=== PATIENT | female | born 1985 | race Caucasian/White ===

== ENCOUNTER 2020-02-12 09:02 | Emergency (ER) | payer OTHER, SELFPAY ==
[2020-02-12] VITALS (8 sets, daily range): BP systolic 135–148; BP diastolic 95–106; PULSE 74–109; RESP 11–19; TEMP 36.7; O2SAT 96–99
--- NOTE | ~2020-02-12 | XR_ITS ---
EXAMINATION: XR chest 1V portable EXAM DATE: 02/12/2020 09:40 INDICATION: One-day shortness of breath. TECHNIQUE: Portable AP frontal chest x-ray was obtained. Comparison is made to prior examination from 11/11/2005. FINDINGS: There is moderate thoracic dextroscoliosis, thoracolumbar levoscoliosis. The lungs are hung r. There are no pleural effusions. The cardiomediastinal silhouette is within normal limits. There is no pneumothorax suspected. IMPRESSION: No acute cardiopulmonary findings. Reviewed, dictated and finalized at location A. MACHINE TENDER STARCH SPRAYING
--- NOTE | 2020-02-12 09:27 | ECG_ITS ---
Measurements Intervals [place] Rate: 104 P: 52 IL: 174 QRS: 51 QRSD: 87 T: -37 QT: 322 QTc: 425 Interpretive Statements SINUS TACHYCARDIA LEFT ATRIAL ENLARGEMENT CANNOT RULE OUT SEPTAL INFARCT, AGE INDETERMINATE ST-T WAVE ABNORMALITY IN INFERIOR LEADS- CONSIDER ISCHEMIA BASELINE ARTIFACT- I, II, V3-V6 ABNORMAL ECG Electronically Signed On 02-12-2020 13:39:59 FITTING ROOM INSPECTOR by Chung Schuler D.O.
[2020-02-12] MEDS: SODIUM CHLORIDE 0.9% IV 1,000 ML 999 ML IV CONT (10:14)
--- NOTE | 2020-02-12 11:06 | ED.GENADULT ---
HPI - General Adult General Chief complaint: Shortness of Breath/Dyspnea Stated complaint: SOB, COVID Positive Time Seen by Provider: 02/12/20 09:04 Source: patient Mode of arrival: ambulatory Limitations: no limitations History of Present Illness HPI narrative: Patient is a 34-year-old female who presents to emergency department for evaluation of Covid symptoms was tested positive last Wednesday had few symptoms preceding the lack consistent of congestion rhinorrhea drainage now has nonproductive cough shortness of breath notes yesterday she lost her sense of smell and taste patient lives with her boyfriend who is also positive patient on arrival to emergency department is in no distress returned to work today and notes that she felt dyspneic and dizzy with activity and presents to the emergency department lying in the bed in no distress does not appear uncomfortable denies vomiting diarrhea or history of lung disease Related Data Home Medications Medication Instructions Recorded Confirmed multivitamin [Multi-Day] tablet 02/12/20 Allergies Allergy/AdvReac Type Severity Reaction Status Date / Time No Known Allergies Allergy Verified 02/12/20 09:19 Review of Systems Review of Systems: All systems reviewed & are unremarkable except as noted in HPI and below PMFSH Family History Family History (Updated 11/30/13 @ 07:13 by DOCTOR UNKNOWN) Other Family history of arthritis Social History Social History Smoking status: Never smoker Second hand tobacco smoke exposure: No Exam Narrative: Exam Narrative: GENERAL: Well-appearing, well-nourished, and in no acute distress. HEAD: Normocephalic, atraumatic. EYES: PERRLA and EOMI. ENT: Nares clear, no rhinorrhea or epistaxis. Mucous membranes moist. CHEST: Clear to auscultation. No respiratory distress. No wheezes rales or rhonchi HEART: Regular rate and rhythm. No murmur heard. EXTREMITIES: Normal range of motion. No edema. SKIN: Warm, dry, no rash. NEURO: No focal deficits. Alert and oriented x3. PSYCH: Normal mood and affect. Course Course Emergency Course: Patient in the room in no distress aware of case findings treatment plan and diagnosis agreeing to follow-up as directed hemodynamically stable was given fluids in the emergency department will be treated symptomatically no pneumonia seen on chest x-ray Vital Signs Vital signs: Vital Signs Pulse Rate 102 H 02/12/20 09:13 Respiratory Rate 16 02/12/20 09:13 Temperature 98.1 F 02/12/20 09:16 Pulse Rate 78 02/12/20 09:56 Respiratory Rate 19 02/12/20 09:56 Blood Pressure 135/95 H 02/12/20 09:56 Pulse Oximetry 99 02/12/20 09:22 Medical Decision Making MDM Narrative Medical decision making narrative: Patient in the room at this time no distress normal vital signs no hypoxemia ABCs stable no pneumonia seen on exam or on the chest x-ray was hydrated felt appropriate for outpatient reevaluation after being released by primary care due to continued symptoms Vital Signs Vital Signs: Vital Signs Pulse Rate 102 H 02/12/20 09:13 Respiratory Rate 16 02/12/20 09:13 Temperature 98.1 F 02/12/20 09:16 Pulse Rate 78 02/12/20 09:56 Respiratory Rate 19 02/12/20 09:56 Blood Pressure 135/95 H 02/12/20 09:56 Pulse Oximetry 99 02/12/20 09:22 Discharge Plan Discharge Clinical Impression: COVID-19 Patient Disposition: Home, Self-Care Condition: Stable Instructions: Antibiotic Form, COVID-19 (Coronavirus Disease 2019) (ED) Additional Instructions: Follow up with your primary care provider within 1-2 day to set up for reevaluation and to have discussion to see when you can be released back to work. Go to ER for shortness of breath, difficulty breathing, chest pain, fever/chills, weakness, nauseau/vomitting, etc. or any other concerns. Self quarantine until you have been advised otherwise by sowmya
== END 2020-02-12 11:21 | disposition home or self-care (01) ==
PROVIDERS: Emergency Provider Emergency Medicine; PCP Internal Medicine
DX: U07.1 COVID-19 (principal); R00.0 Tachycardia, unspecified; R94.31 Abnormal electrocardiogram [ECG] [EKG]
CPT/HCPCS: 71045; 93005; 96360; 99283; J7030

== ENCOUNTER → 2021-01-25 00:20 | Outpatient (CLI) | payer OTHER, SELFPAY ==
[2021-01-25 18:07] LABS: SARS-CoV-2 RNA PCR Negative
== END ==
PROVIDERS: Visit Provider Obstetrics & Gynecology
DX: Z01.812 Encounter for preprocedural laboratory examination (principal); Z20.822 Contact with and (suspected) exposure to COVID-19
CPT/HCPCS: C9803; U0003; U0005

== ENCOUNTER 2021-01-29 00:10 | Day surgery (SDC) | payer OTHER, SELFPAY ==
[2021-01-23 13:48] VITALS: BMI 23.1
--- NOTE | 2021-01-29 11:41 | PM.IMHP ---
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 She has had one prior LEEP conization of the cervix. She has had a negative colposcopy and a negative ECC. She has a ParaGard IUD in place. She has monthly menses lasting 6 days each, with no intermenstrual bleeding. Chief Complaint: Abnormal pap Review of Systems Review of Systems: All systems reviewed & are unremarkable except as noted in HPI and below PMFSH Surgical History Surgical History History of loop electrical excision procedure (LEEP) Family History Family History Other Family history of arthritis Social History Social History Smoking status: Never smoker Second hand tobacco smoke exposure: No Alcohol intake: current Drinks per week: 4 Substance use: never Substance use type: does not use Living arrangements: with family Additional living arrangements comments: CHILDREN Spiritual care concerns: No Meds Home Medications and Allergies Home Medications Medication Instructions Recorded Confirmed Type multivitamin [Multi-Day] 1 tablet PO HS 02/12/20 01/23/21 History Allergies Allergy/AdvReac Type Severity Reaction Status Date / Time No Known Allergies Allergy Verified 01/23/21 13:47 Exam Const: Orientation/consciousness: patient oriented x3 Other: Well-developed, well-nourished female in no acute distress. Neck: Thyroid: thyroid normal Lymphatic: no lymphadenopathy noted (in neck, axilla or inguinal nodes) Resp: Effort & Inspection: normal respiratory effort Auscultation: clear to auscultation bilaterally Cardio: Rate: regular rate Rhythm: regular rhythm Heart sounds: S1 normal heart sound present and S2 normal heart sound present GI: Other: ABD: Soft, nontender, nondistended. No guarding or rebound tenderness. No hepatosplenomegaly. : General: Yes no CVA tenderness Other: External genitalia: normal female hair distribution, without lesion. Urethral meatus: no lesion, non prolapsed. Bladder: no mass, nontender Vagina: well-estrogenized, without lesion or discharge. No cystocele or rectocele. Cervix: no lesion or discharge. IUD strings noted. Uterus: small, anteverted, freely mobile, nontender Adnexa: no mass or tenderness. Anus/perineum: no lesions, nontender Back/Spine/Pelvis: Back: no CVA tenderness Skin: General skin exam: normal color and no rashes or lesions noted Neuro: General: patient oriented x3 Extrem: Other: Extremities: nontender with no edema Psych: Mental Status: mental status grossly normal Affect: normal affect Assessment and Plan Assessment and plan (1) Pap smear abnormality of cervix with LGSIL: Code(s): R87.612 - Low grade squamous intraepithelial lesion on cytologic smear of cervix (LGSIL) Status: Acute Assessment and Plan: A: Persistent LSIL on Pap, with negative colposcopy and negative ECC. P: I have offered continued Pap / colpo surveillance, vs. LEEP conization. She has completed childbearing and is interested in more aggressive management with LEEP. She understands risks of surgery to include risks of anesthesia, risks of pain, infection, bleeding, blood products, thromboembolic phenomena and damage to adjacent structures such as bowel, bladder, ureters, blood vessels and nerves. She understands all these risks and elects to proceed with surgery.
--- NOTE | 2021-01-29 12:05 | WPDHPUPDATE1 ---
History and Physical Update Update Date/Time: 01/29/21 12:05 History and Physical has been reviewed, including an updated exam of the patient. There are NO changes in the patient's condition. Risks, benefits, and alternatives have been discussed and questions answered. Patient agrees to proceed with procedure.
[2021-01-29 12:11] VITALS: BP 127/81; PULSE 84; RESP 18; TEMP 36.5; O2SAT 100; BMI 23.4
[2021-01-29] MEDS: ACETAMINOPHEN 500 MG TABLET 1000 MG PO (12:17)
[2021-01-29] MEDS: LACTATED RINGERS 1,000 ML 30 ML IV CONT (12:26)
--- NOTE | 2021-01-29 13:09 | P.PNAN_ITS ---
Anes - Initial Pre Proc Eval Procedure: Operation Date: 01/29/21 14:00 Proposed Procedures p Loop Electrical Excision Procedure - Titus Barr MD Date/Time: 01/29/21 13:09 Surgeon: Titus Barr MD Pre Op Diagnosis: low grade ELSY Patient Data Age: 35 Gender: F Height: 1.63 m Weight: 62 kg Last Vital Signs Temp 36.5 C 01/29/21 12:11 Pulse 84 01/29/21 12:11 Resp 18 01/29/21 12:11 BP 127/81 01/29/21 12:11 Pulse Ox 100 01/29/21 12:11 Allergies Allergy/AdvReac Type Severity Reaction Status Date / Time No Known Allergies Allergy Verified 01/29/21 12:13 Home Medications Medication Instructions Recorded Confirmed Type multivitamin [Multi-Day] 1 tablet PO HS 02/12/20 01/29/21 History Patient hx anesthesia problems: none Family hx anesthesia problems: none Results Review: All pre-operative results and documents have been reviewed as part of the pre-operative evaluation. [facility] Surgical History Surgical History History of loop electrical excision procedure (LEEP) Family History Family History Other Family history of arthritis Social History Social History Smoking status: Never smoker Second hand tobacco smoke exposure: No Alcohol intake: current Drinks per week: 4 Substance use: never Substance use type: does not use Living arrangements: with family Additional living arrangements comments: CHILDREN Spiritual care concerns: No Anes - Eval Final PreProcedure Day of Procedure 01/29/21 13:09 Patient weight: normal Heart: regular rate and rhythm Lungs: clear to auscultation and normal air movement Airway: Mallampati scale class II Neurological: alert and oriented Last oral intake: >/= 8 hours ASA classification: II Emergent: no Anesthetic plan: proceed Anesthesia type and monitoring: general GIVS and standard monitoring Results Review: All pre-operative results and documents have been reviewed as part of the pre-operative evaluation. Informed Consent: The patient's anesthetic plan and its attendant risks and benefits were discussed with the patient/family/POA. Questions were solicited and answers provided to the satisfaction of the patient/family/POA.
--- NOTE | 2021-01-29 14:38 | SUR.PREOP ---
PT NOTIFIED OF 1 HOUR DELAY
[2021-01-29] MEDS: FERRIC SUBSULFATE 8 ML SOLUTION WITH APPLICATOR TOPICAL (15:11)
[2021-01-29] MEDS: ACETIC ACID 0.25% IRRIG SOLN 500 ML IRRIGATION (15:12)
--- NOTE | 2021-01-29 15:29 | W.PM.PROC2 ---
Procedure Note - Detailed Date of Procedure 01/29/21 Pre-op Diagnosis LSIL on Pap Post-op Diagnosis same Procedure Performed LEEP conization of cervix Surgeon Titus Barr MD Anesthesia MAC and local (1% lidocaine paracervical block) Findings IUD strings noted. No acetowhite epithelium. Description of Procedure The patient was taken to the operating room where general IV sedation was administered. She was prepared and draped in the usual sterile fashion. An insulated speculum was placed. The cervix was swabbed with acetic acid. The anterior lip of the cervix was grasped with a single-tooth tenaculum. Ten mL of 1% lidocaine was administered in a paracervical block. LEEP conization was then performed, first biopsying the posterior lip of the cervix, then the anterior lip of the cervix, and then the top of the hat. Specimens were passed off to be sent to pathology. Hemostasis was achieved using a roller ball, followed by Monsel's solution. Hemostasis was excellent. The IUD strings were amputated during the procedure. Sponge, lap, needle and instrument counts were correct. The patient was awakened and taken to the recovery room in stable condition. I was present and scrubbed for the entire procedure. Implants None Estimated Blood Loss 5 Drains No Packing No Pathology yes (Anterior lip of cervix, posterior lip of cervix, top of hat biopsies) Complications None Disposition PACU
[2021-01-29 15:33] VITALS: BP 112/64; PULSE 67; RESP 14; O2SAT 98
[2021-01-29] MEDS: oxyCODONE HCL (*CRX) 5 MG TAB IR PO (15:46)
[2021-01-29 16:00] VITALS: BP 126/79; PULSE 57; RESP 16
== END 2021-01-29 16:20 | disposition home or self-care (01) ==
PROVIDERS: Visit Provider Obstetrics & Gynecology
PROC: 0UBC7ZZ Excision of Cervix, Via Natural or Artificial Opening (ICD-10-PCS; CPT 57522; principal; 2021-01-29 14:00)
DX: N72 Inflammatory disease of cervix uteri (principal); R87.810 Cervical high risk human papillomavirus (HPV) DNA test positive
CPT/HCPCS: 57522; 88305; A9270; J2250; J2270; J2405; J2704; J7120

== ENCOUNTER → 2021-10-28 15:29 | Outpatient (CLI) | payer SELFPAY ==
--- NOTE | ~2021-10-28 | MR_ITS ---
EXAMINATION: MR knee RT wo con DATE: 10/28/2021 16:10 INDICATION: Right knee pain TECHNIQUE: Magnetic resonance imaging (MRI) of the right knee was performed without intravenous contr ast. Sequences included axial PD-weighted FS FSE, coronal PD-weighted FSE and PD-weighted FS FSE, sag ittal PD-weighted FSE, and sagittal T2-weighted FS FSE. COMPARISON: None. FINDINGS: Medial compartment: Mild medial meniscal displacement, without focal tear. Mild diffuse thinning of cartilage and joint s pace narrowing, with mild osteophytosis. Lateral compartment: No meniscal tear. Mild diffuse thinning of cartilage and osteophytosis. Patellofemoral compartment: Multifocal partial-thickness cartilage signal abnormality. Retinacula intact. The flexor and extensor tendons are intact Ligaments and tendons: The stabilizing ligaments and flexor and extensor tendons are intact. Fluid: Minimal right knee joint fluid. Osseous/other: Focal subchondral sclerosis and minimal marrow edema on the weightbearing surface of the medial condy le. IMPRESSION: 1. Mild tricompartmental osteoarthritis. 2. No internal derangement. Reviewed, dictated and finalized at location K.
== END ==
DX: M25.561 Pain in right knee (principal); M17.11 Unilateral primary osteoarthritis, right knee
CPT/HCPCS: 99199; 73721

== ENCOUNTER 2023-03-18 10:53 | Emergency (ER) | payer OTHER, SELFPAY ==
[2023-03-18 11:25] VITALS: BP 148/92; PULSE 78; RESP 18; TEMP 36.8; O2SAT 99
--- NOTE | 2023-03-18 11:34 | PC.NURSE ---
Pt had to leave to take care of personal affairs.
== END 2023-03-18 11:45 | disposition left against medical advice (07) ==
LOC: ANHED 11:41
DX: K64.9 Unspecified hemorrhoids (principal)
CPT/HCPCS: 99199

== ENCOUNTER 2023-11-23 12:25 | Outpatient (CLI) | payer OTHER, SELFPAY ==
--- NOTE | ~2023-11-23 | MMUS_ITS ---
EXAMINATION: MM diag rossi implant BI w petar, US breast LT limited HISTORY: Palpable left breast abnormality TECHNIQUE: Additional 3-D tomosynthesis images of the breasts were performed and synthetic 2-D images were generated. CAD analysis was submitted and interpreted. High resolution Limited left breast ultr asound was performed. COMPARISON: None BREAST PARENCHYMAL COMPOSITION: Dense: The breasts are heterogeneously dense, which may obscure small masses FINDINGS: MAMMOGRAPHIC FINDINGS: There are bilateral subpectoral breast implants. There are no suspicious masses, calcifications or ar chitectural distortion in either breast to suggest malignancy. ULTRASOUND: Limited left breast ultrasound: 11:00, 6 cm from the nipple there is an oval circumscribed hypoechoic mass measuring 2.9 x 3.1 x 1.0 cm which has enlarged compared with ultrasound dated 03/06/2010 when it measured up to 1.3 cm. Per the patient this mass is been stable for long period of time. No business intern al vascularity or significant posterior features. IMPRESSION: 1. Probable benign left breast mass at 11:00, 6 cm from the nipple. 2. Recommend 6 month follow-up Limited left breast ultrasound. BI-RADS category 3, probably benign findings. Reviewed, dictated and finalized at location B. IMPRESSION: 1. Probable benign left breast mass at 11:00, 6 cm from the nipple. 2. Recommend 6 month follow-up Limited left breast ultrasound. BI-RADS category 3, probably benign findings.
== END 2023-11-23 12:26 | disposition home or self-care (01) ==
LOC: ANHIMG 12:27
PROVIDERS: Visit Provider Obstetrics & Gynecology
DX: N63.20 Unspecified lump in the left breast, unspecified quadrant (principal); R92.8 Other abnormal and inconclusive findings on diagnostic imaging of breast
CPT/HCPCS: 76642; 77062; 77066; G0279

== ENCOUNTER 2024-06-20 09:04 | Outpatient (CLI) | payer OTHER, SELFPAY ==
--- NOTE | ~2024-06-20 | US_ITS ---
US breast LT limited 06/20/2024 09:16 Indication: Six-month follow-up left breast mass Procedure: High-resolution Limited ultrasound of the left breast Comparison: Comparison to multiple prior studies sequentially, with oldest reviewed study dated 05/2009. Findings: At 11:00, 6 cm from the nipple there is an oval parallel oriented circumscribed hypoechoic mass with posterior acoustic enhancement and no internal vascularity measuring 2.9 x 2.9 x 1.1 cm com pared with 3.1 x 2.9 x 1 cm on study dated 11/23/2023. No additional masses are identified. Impression: 1: Stable benign-appearing left breast mass at 11:00, 6 cm from the nipple measuring 2.9 cm, likely b enign. BI-RADS CATEGORY 3-PROBABLY BENIGN FINDING RECOMMENDATION: Six-month follow-up diagnostic bilateral mammogram and Limited left breast ultrasound recommended. Reviewed, dictated and finalized at location B. Impression: 1: Stable benign-appearing left breast mass at 11:00, 6 cm from the nipple ray uring 2.9 cm, likely benign. BI-RADS CATEGORY 3-PROBABLY BENIGN FINDING RECOMMENDATION: Six-month follow-up diagnostic bilateral mammogram and Limited left breast ultrasound recommended.
== END 2024-06-20 09:05 | disposition home or self-care (01) ==
PROVIDERS: PCP Obstetrics & Gynecology; Visit Provider Obstetrics & Gynecology
DX: R92.8 Other abnormal and inconclusive findings on diagnostic imaging of breast (principal); N63.22 Unspecified lump in the left breast, upper inner quadrant
CPT/HCPCS: 76642

== ENCOUNTER 2024-12-21 09:10 | Outpatient (CLI) | payer OTHER, SELFPAY ==
--- NOTE | ~2024-12-21 | MMUS_ITS ---
EXAMINATION: US breast LT limited, MM diagnostic rossi BI w petar HISTORY: Six-month follow-up left breast TECHNIQUE: Additional images of both breasts]] were performed using full field digital mammography. 3-D tomosynthesis were also obtained and synthetic 2-D images were generated. CAD analysis was submitted and interpreted. High- resolution bilateral breast ultrasound was performed.] ] Implant displacement views were obtained. COMPARISON: Mammogram 11/23/2023; breast ultrasound 11/23/2023 BREAST PARENCHYMAL COMPOSITION: The breasts are extremely dense which lowers the sensitivity of mammography. FINDINGS: MAMMOGRAPHIC FINDINGS: No suspicious calcifications or architectural distortion. Mass in the upper- inner quadrant 11:00 position with a sonographic correlate. ULTRASOUND: [ There is a 2.9 x 2.9 x 1.1 cm wider than tall well-circumscribed hypoechoic mass in the left breast at the 11:00 position, 6 cm from the nipple. No internal color Doppler flow. No posterior acoustic shadowing. The finding is grossly stable dating back to the study from 11/23/2023. The finding is probably benign. IMPRESSION/RECOMMENDATION: 1. Probably benign mass in the left breast at the 11:00 position dating back to 11/23/2023. A diagnostic left breast ultrasound in 6 months is recommended. 2. No mammographic evidence for malignancy in the right breast. BI-RADS 3-Probably benign-Short interval follow-up suggested. Reviewed, dictated and finalized at location Q. IMPRESSION/RECOMMENDATION: 1. Probably benign mass in the left breast at the 11:00 position dating back to 11/23/2023. A diagnostic left breast ultrasound in 6 months is recommended. 2. No mammographic evidence for malignancy in the right breast. BI-RADS 3-Probably benign-Short interval follow-up suggested. IMPRESSION/RECOMMENDATION: 1. Probably benign mass in the left breast at the 11:00 position dating back to 11/23/2023. A diagnostic left breast ultrasound in 6 months is recommended. 2. No mammographic evidence for malignancy in the right breast. BI-RADS 3-Probably benign-Short interval follow-up suggested.
--- OUTSIDE RECORDS SUMMARY | 2024-12-21 09:36 | XMS_ITS | Encounter Summary ---
Author Organization [facility] Address [address] [place] [address] Care Team Providers Care Content Engineer Name Role Phone Titus Barr MD Primary Care Provider [phone] Encounter Details Date Type Department Care Team (Late st Contact Info) Description 06/03/2018 Lab Requisition [facility] [address] [facility] [facility] [place] [id number] Fabiola Dutta MD [address] [facility] [address] [place] [address] Social History Tobacco Use Types Packs/Day Years Used Date Smoking Tobacco: Never Alcohol Use Standard Drinks/Week Comments No 0 (1 standard drink = 0.6 oz pur e alcohol) Comments Unknown Sex and Gender Information Value Date Recorded Sex Assigned at Not on file Legal Sex Female 1:48 AM CORRECTIONAL PROGRAM OFFICER Gender Identity Not on file Sexual Orientation Not on file documented as of this encounter Plan of Treatment Not on file documented as of this encounter Procedures Procedure Name Priority Date/Time Associated Diagnosis Comments DERMATOPATH TECHNICAL REPORT Routine 06/02/2018 12:00 AM CORRECTIONAL PROGRAM OFFICER documented in this encounter Results * DERMATOPATH TECHNICAL REPORT (06/02/2018 12:00 AM CORRECTIONAL PROGRAM OFFICER) Case Report Dermatopathology Report Case: [id number] Authorizing Provider: Fabiola Dutta MD Collected: 06/02/2018 12:00 AM Pathologist: Daisy Samuels MD Received: 06/03/2018 11:38 AM Specimen: Skin, left ankle 2:25 PM [facility] Addendum 1 At the request of the diagnosing physician, the technical component for MART-1/Melan A was performed by [facility]. 2:25 PM [facility] Addendum electronically signed by Daisy Samuels MD on 06/07/2018 at 1425 CORRECTIONAL PROGRAM OFFICER Clinical History Nevus R/O atypia. Brown macule, irr color. 2:25 PM [facility] Gross Description Specimen A: Received is one formalin filled container labeled with the patient's name and designated left ankle. The specimen consists of a shave measuring [id number]. Jar 0. [facility] performed the technical component only. 2:25 PM [facility] Embedded Images 2:25 PM [facility] DISCLAIMER An external and internal positive and negative controls are appropriate for the histochemical, immunohistochemical and immunofluorescence stain(s) in this case (if any), except where stated explicitly. The performance characteristics of the stain(s) cited in this report were developed and its performance characteristic determined by the Dermatopathology Laboratory at [facility], directed by Dr. Faustina Samuels. These tests need not be, and therefore are not, approved by the [place] Food and Drug Administration. The tests are used for clinical purposes. 2:25 PM [facility] at 1842 CORRECTIONAL PROGRAM OFFICER Pathology/Cytolog y TISSUE SPECIMEN FROM SKIN / Unknown 06/02/2018 06/03/2018 11:38 AM CORRECTIONAL PROGRAM OFFICER us Fabiola Dutta MD LAB - PATHOLOGY/CYTOLOGY ORD ERABLES Edited Result - Final DERMATOPATHOLOGY LABORATORY [facility] - Department of Dermatology [address] [place] [address], [facility] [email or web address]] [phone] documented in this encounter Visit Diagnoses Not on filedocumented in this encounter Care Teams Content Engineer Relationship Specialty Start Date End Date Titus Barr MD [address] [id number] PCP - General 01/19/11 documented as of this encounter
--- OUTSIDE RECORDS SUMMARY | 2024-12-21 09:36 | XMS_ITS | Clinical Summary ---
Author Organization [facility] Address [address] [place] [id number] Care Team Providers Care Plunger Shovel Operator Name Role Phone Unavailable Primary Care Provider Unavailabl e Social History Tobacco Use Types Packs/Day Years Used Date Smoking Tobacco: Never Assessed Comments Unknown Sex and Gender Information Value Date Recorded Sex Assigned at Not on file Legal Sex Female 9:23 PM EARLY CHILDHOOD EDUCATION COORDINATOR Gender Identity Not on file Sexual Orientation Not on file Plan of Treatment Health Maintenance Due Date Last Done Comments Cervical Cancer Screening Pa p Smear (Age 30 to 64) Every 3 Years 1983 Annual Physical 09/25/1986 Hepatitis C 09/25/2001 DTaP, Tdap and Td Vaccines ( 1 - Tdap) 09/25/2002 Hepatitis B Vaccines (1 of 3 - 19+ 3-dose series) 09/25/2002 HPV Vaccines (1 - 3-dose SCD M series) 09/25/2010 Cervical Cancer Screening Pa p with HPV Testing (Age 30 to 64) Every 5 Years 09/25/2013 Cervical Cancer Screening with HPV 09/25/2013 Mammogram Screening 2023 COVID-19 Vaccine ( - 2023-2 5 season) 2024 Meningococcal B Vaccine Aged Out No l onger eligible based on patient's age to complete this topic Meningococcal Vaccine Aged Out No rene sav eligible based on patient's age to complete this topic Pneumococcal Vaccine: Pediat rics (0 to 5 Years) and At-Risk Patients (6 to 49 Years) Aged Out No longer eligible b ased on patient's age to complete this topic RSV Immunizations Under 20 Months Aged Out No longer eligible based on patient's age to complete this topic
--- OUTSIDE RECORDS SUMMARY | 2024-12-21 09:36 | XMS_ITS | Clinical Summary ---
Author Organization [facility] Address [address] [place] [address] Care Team Providers Care Respiratory Therapy Instructor Name Role Phone Titus Barr MD Primary Care Provider [phone] Source Comments [facility],non-owned Affiliates and Associated Physician Practices is amultiple site organization consisting of ambulatory clinics and hospital sitesin [place], [place], [place] and [place]. This disclosure is being madepursuant to the Care Everywhere program and may not contain all information available regarding this patient. Last updated 17.[facility] Allergies No known active allergies Medications * Be aware that medications may not be up to date on this document. Alwaysverify current medications with the patient. Vit-Fe Fumarate-FA ( RX 1) 60-1 MG tablet Take 1 Tab by mouth once daily. Active acetaminophen (TYLENOL) 500 MG tablet Take 500 mg by mouth every 4 hours as needed. Maximum allowable Acetaminophen amount = 4 Grams (4000 mg) / 24 hours. Active ibuprofen (MOTRIN) 600 MG tablet Take 1 Tab by mouth every 6 hours as needed for Pain (cramping). 60 Tab 1 1 Active docusate sodium (COLACE) 100 MG capsule Take 1 Cap by mouth 2 times daily as needed for Constipation. 60 Cap 1 1 Active Active Problems Problem Noted Date Diagnosed Date GBS (group B streptococcus) UTI complicating pre gnancy 01/19/2011 Rh negative status during 01/19/2011 Overview (01/19/2011): Rhogam given 01/15 Placenta previa 01/16/2011 Low-lying placenta 01/15/2011 Immunizations Immunization Administration Dates Next Due Rho D Immune Globulin 01/27/2011,01/15/2011 Family History Medical History Relation Name Comments Cancer Maternal Grandfather lymphoma Diabetes Paternal Uncle Relation Name Status Comments Maternal Grandfather lymphoma Paternal Uncle Social History Tobacco Use Types Packs/Day Years Used Date Smoking Tobacco: Never Alcohol Use Standard Drinks/Week Comments No 0 (1 standard drink = 0.6 oz pur e alcohol) Comments Unknown Sex and Gender Information Value Date Recorded Sex Assigned at Not on file 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 Gender Identity Not on file Sexual Orientation Not on file Last Filed Vital Signs Vital Sign Reading Time Taken Comments Blood Pressure 115/65 01/27/2011 8:00 AM CDT Pulse 92 01/26/2011 11:50 PM CDT Temperature 36.6 C (97.8 F) 01/27/2011 10:00 AM CDT Respiratory Rate 20 01/27/2011 8:00 AM CDT Oxygen Saturation 98% 01/19/2011 7:30 PM CDT Inhaled Oxygen Concentration - - Weight 54 kg (119 lb) 01/25/2011 12:12 PM CDT Height 160 cm (5' 3) 01/16/2011 7:45 AM CDT Body Mass Index 21.08 01/16/2011 7:45 AM CDT Plan of Treatment Health Maintenance Due Date Last Done Comments LIPID TESTING 1983 MAMMOGRAM 1983 HIV SCREENING 09/25/1998 HEPATITIS C SCREENING 09/21/2001 DTAP/TDAP/TD VACCINES (1 - Tdap) 09/25/2002 HEPATITIS B VACCINE (1 of 3 - 19+ 3-dose series) 09/25/2002 HPV VACCINE (1 - 3-dose SCDM series) 09/25/2010 DEPRESSION SCREENING 04/05/2024 COVID-19 VACCINE (1 - 2023-2 5 season) 2024 INFLUENZA VACCINE (#1) 2024 ZOSTER VACCINE (1 of 2) 09/25/2033 HIB VACCINE Aged Out No longer eligi ble based on patient's age to complete this topic MENINGOCOCCAL (Group B) VACC INE SHARED DECISION-MAKING Aged Out No longer eligibl e based on patient's age to complete this topic MENINGOCOCCAL GROUPS A/C/Y/W VACCINE Aged Out No longer eligible b ased on patient's age to complete this topic PNEUMOCOCCAL VACCINE Aged Out No long er eligible based on patient's age to complete this topic Insurance Advance Directives * FULL RESUSCITATION (Latest Code Status on File) Date Activated Date Inactivated Comments 01/15/2011 4:00 PM 01/27/2011 11:46 PM * FULL RESUSCITATION Date Activated Date Inactivated Comments 01/15/2011 1:20 PM 01/15/2011 4:00 PM Care Teams Respiratory Therapy Instructor Relationship Specialty Start Date End Date Titus Barr MD [address] [place] [phone] PCP - General 01/19/11
== END 2024-12-21 09:11 | disposition home or self-care (01) ==
PROVIDERS: PCP Obstetrics & Gynecology; Visit Provider Obstetrics & Gynecology
DX: R92.8 Other abnormal and inconclusive findings on diagnostic imaging of breast (principal)
CPT/HCPCS: 76642; 77062; 77066; G0279